=== PATIENT | female | born 1990 | race Caucasian/White ===

== ENCOUNTER 2022-09-23 06:00 | Inpatient (IN) | payer OTHER ==
[2022-09-23] MEDS: Lactated Ringer's 1,000 ML IV SCH ×2 (07:05→11:20)
[2022-09-23 07:49] VITALS: BMI 43.9
[2022-09-23] MEDS ORDERED: Bupivacaine 0.25% HCL 30 ML VIAL ONE (08:00)
[2022-09-23] MEDS ORDERED: hydrALAZINE 20 MG/ML VIAL SLOW IVP PRN ×2 (08:48→14:51)
[2022-09-23] MEDS ORDERED: Lidocaine 1% (PF) 30 ML VIAL SC PRN (08:48)
[2022-09-23] MEDS ORDERED: Butorphanol Tartrate 1 MG/ML VIAL SLOW IVP PRN (08:48)
[2022-09-23] MEDS ORDERED: Carboprost 250 MCG/ML AMP IM PRN (08:48)
[2022-09-23] MEDS ORDERED: HYDROcodone/Acetaminophen 5/325 mg Tablet PO PRN ×2 (08:48)
[2022-09-23] MEDS ORDERED: Acetaminophen 500 MG TAB PO PRN (08:48)
[2022-09-23] MEDS ORDERED: Promethazine HCl 25 MG/ML VIAL IM PRN ×2 (08:48→11:19)
[2022-09-23] MEDS ORDERED: Diphenoxylate HCl/Atropine Tablet PO PRN ×2 (08:48)
[2022-09-23] MEDS ORDERED: Ondansetron PF 4 MG/2 ML Vial IVP PRN ×2 (08:48→11:19)
[2022-09-23] MEDS ORDERED: Ibuprofen 800 MG TAB PO PRN (08:48)
[2022-09-23 08:59] LABS: Hemoglobin 12.4 g/dL (12.0-15.5); Mean Corpuscular HGB CONC 33.6 g/dL (32.0-36.0); Mean Corpuscular Hemoglobin 28.6 pg (27.0-33.0); Mean Platelet Volume 11.7 fl (7.4-10.4); Platelet Count 311 10x3/uL (150-450); RBC Distribution Width 15.2 % (11.5-14.5); Red Blood Cell (RBC) Count 4.34 10x6/uL (3.90-5.03); White Blood Cell (WBC) Count 10.7 10x3/uL (3.5-10.5)
[2022-09-23] MEDS ORDERED: NS w/ Oxytocin 30 units 500 ML IV SCH ×2 (09:00)
[2022-09-23 09:39] LABS: HBSAg Index 0.18 S/CO (0-0.99); Hep B Surf Ag Non-Reactive S/CO (NonReactive)
[2022-09-23 09:40] LABS: Syphilis Antibody Nonreactive (Nonreactive); Syphilis Antibody Index 0.04 S/CO (<1.00 Non-Reactive)
[2022-09-23] MEDS ORDERED: Fentanyl 2 mcg/Bup 0.1% Cadd 100 ML ONE (10:49)
[2022-09-23] MEDS ORDERED: Naloxone HCl 0.4 mg/ml Vial IVP PRN ×2 (11:19)
[2022-09-23] MEDS ORDERED: Acetaminophen 325 MG TAB PO PRN (11:19)
[2022-09-23] MEDS ORDERED: ePHEDrine Sulfate 50 MG/10 ML VIAL SLOW IVP PRN (11:19)
[2022-09-23] MEDS ORDERED: diphenhydrAMINE 50 MG/ML VIAL IVP PRN (11:19)
[2022-09-23] MEDS ORDERED: Lactated Ringer's 500 ML IV PRN (11:19)
[2022-09-23] MEDS ORDERED: Moisturizing Cream (Eucerin) 113 GM JAR TOP PRN (11:19)
[2022-09-23] MEDS ORDERED: Fentanyl 2 mcg/Bupivacaine 0.1% Cassette 100 ML EPIDURAL SCH (11:30)
[2022-09-23] MEDS ORDERED: Communication Order-Pharmacy FS SCH (11:30)
[2022-09-23 11:49] LABS: SARS-CoV-2 NAA Rapid Test Not Detected (NotDetected)
[2022-09-23] MEDS ORDERED: Methylergonovine 0.2 MG/ML VIAL ONE (14:27)
[2022-09-23] MEDS ORDERED: Misoprostol 200 MCG TAB ONE (14:27)
[2022-09-23] MEDS ORDERED: Lanolin Ointment 7 GM TUBE TOP PRN (14:51)
[2022-09-23] MEDS ORDERED: Preparation H Ointment 28 GM TUBE PR PRN (14:51)
[2022-09-23] MEDS ORDERED: Boostrix 0.5 ML (Tdap) VIAL (>/=7 yrs of age) IM ONE (14:51)
[2022-09-23] MEDS ORDERED: diphenhydrAMINE 25 MG CAP PO PRN (14:51)
[2022-09-23] MEDS ORDERED: Benzocaine-Menthol 82.5 ML CAN TOP PRN (14:51)
[2022-09-23] MEDS ORDERED: Milk Of Magnesia 30 ML UDCUP PO PRN (14:51)
[2022-09-23] MEDS ORDERED: Bisacodyl 10 MG SUPP PR PRN (14:51)
[2022-09-23] MEDS: traMADol HCl 50 MG TAB PO PRN (18:45)
[2022-09-23] MEDS: Ferrous Sulfate 325 MG TAB PO SCH (18:46)
[2022-09-23] MEDS: Ibuprofen 800 MG TAB PO SCH (22:13)
[2022-09-23] MEDS: Docusate 100 MG CAP PO SCH (22:13)
[2022-09-24] MEDS: traMADol HCl 50 MG TAB PO PRN (01:08)
[2022-09-24] MEDS: Ibuprofen 800 MG TAB PO SCH ×2 (05:13→13:54)
[2022-09-24] MEDS: Ferrous Sulfate 325 MG TAB PO SCH ×2 (07:22→15:00)
[2022-09-24] MEDS: Docusate 100 MG CAP PO SCH (07:59)
[2022-09-24 08:01] VITALS: TEMP 98.2
[2022-09-24] MEDS ORDERED: Prenatal Vitamin 1 TAB PO SCH (09:00)
[2022-09-24 11:44] VITALS: BP 114/53
== END 2022-09-24 17:30 | disposition home or self-care (01) | DRG 807 ==
LOC: CSHLD 06:10 → CSHPP 17:00 → CSHPED 20:34 → CSHPP 22:35
PROVIDERS: ADMIT Obstetrics & Gynecology; ATTEND Obstetrics & Gynecology
PROC: 10E0XZZ Delivery of Products of Conception, External Approach (ICD-10-PCS; principal; 2022-09-23)
PROC: 0HQ9XZZ Repair Perineum Skin, External Approach (ICD-10-PCS; 2022-09-23)
DX: O34.211 Maternal care for low transverse scar from previous cesarean delivery (principal); Z37.0 Single live birth; Z20.822 Contact with and (suspected) exposure to COVID-19; Z3A.40 40 weeks gestation of pregnancy; O70.0 First degree perineal laceration during delivery
CPT/HCPCS: 51702; 85027; 86780; 86850; 86900; 86901; 87340; J2590; J7120; S0020; U0002